=== PATIENT | male | born 1960 | race Caucasian/White ===

== ENCOUNTER 2016-09-09 15:24 | Outpatient (CLI) ==
[2014-04-17 09:56] VITALS: BMI 32.5
== END 2016-09-09 15:25 | disposition home or self-care (01) ==
LOC: DIETCN 15:24
PROVIDERS: ATTEND Internal Medicine
DX: E11.9 Type 2 diabetes mellitus without complications (principal)
CPT/HCPCS: 97802

== ENCOUNTER 2016-11-14 10:21 | Emergency (ER) ==
[2016-11-14 10:22] VITALS: BMI 32.5
[2016-11-14 10:33] VITALS: BP 130/87; TEMP 98.3
--- NOTE | 2016-11-14 10:41 | ED.PDOC ---
General ED Provider: Dr. CRISTAL AGUILLON Chief Complaint: Bite Stated Complaint: tick bite/ tick embedded in skin Time Seen by Physician: 10:23 (tick bite right leg) Mode of Arrival: Walk-In Information Source: Patient Exam Limitations: No limitations Primary Care Provider: LONG NICOLAS Nursing and Triage Documentation Reviewed and Agree: Yes (behind right knee) Skin Complaint Exam - Skin/Soft Tissue Complaint/Exam Onset/Duration: 3 days Symptoms Are: Still present Timing: Constant Current Severity: Mild Character: Denies: Redness, Swelling, Raised, Painful Aggravating: Reports: None Alleviating: Reports: None Associated Signs and Symptoms: Denies: Fever, Chills, Itching, Drainage, Bruising, Tenderness, Red streaks, Joint swelling Related Surgical History: Reports: None Recent Exposure to Others w/Similar Symptoms: No Skin Findings: Present: Other (tick bite) Joint Tenderness Present: No Review of Systems - Review Of Systems Constitutional: Reports: No symptoms Eyes: Reports: No symptoms Ears, Nose, Mouth, Throat: Reports: No symptoms Respiratory: Reports: No symptoms Cardiac: Reports: No symptoms GI: Reports: No symptoms : Reports: No symptoms Musculoskeletal: Reports: No symptoms Skin: Reports: Other (tick bite) Neurological: Reports: No symptoms Endocrine: Reports: No symptoms Hematologic/Lymphatic: Reports: No symptoms All Other Systems: Reviewed and Negative Past Medical History - Past Medical History Previously Healthy: No Endocrine: Reports: DM 2, Dyslipidemia Cardiovascular: Reports: None Respiratory: Reports: None Hematological: Reports: None Gastrointestinal: Reports: GERD Genitourinary: Reports: None Neuro/Psych: Reports: None Musculoskeletal: Reports: None Cancer: Reports: None - Surgical History General Surgical History: Reports: Unknown - Family History Family History: Reports: Unknown - Social History Smoking Status: Never smoker Hx Substance Use: No Alcohol Screening: Occasionally - Immunizations Tetanus Shot up to Date: Yes Physical Exam - Physical Exam Appearance: Well-appearing, No pain distress, Well-nourished Eyes: ZULEYKA, EOMI, Conjunctiva clear ENT: Ears normal, Nose normal, Oropharynx normal Respiratory: Airway patent, Breath sounds clear, Breath sounds equal, Respirations nonlabored Cardiovascular: RRR, Pulses normal, No rub, No murmur GI/: Soft, Nontender, No masses, Bowel sounds normal, No Organomegaly Musculoskeletal: Normal strength, ROM intact, No edema, No calf tenderness Skin: Warm, Dry (tick noted behind right knee see photos) Neurological: Sensation intact, Motor intact, Reflexes intact, Cranial nerves intact, Alert, Oriented Psychiatric: Affect appropriate, Mood appropriate Critical Care Note - Critical Care Note Total Time (mins): 0 Course - Course Orders, Labs, Meds: Orders Category Date Time Status BLOOD CULTURE Stat LAB 11/14/16 10:30 Stop Req CBC W/ AUTO DIFF Stat LAB 11/14/16 10:30 Stop Req COMPREHENSIVE METABOLIC PANEL Stat LAB 11/14/16 10:30 Stop Req LYME, WESTERN BLOT, SERUM Stat LAB 11/14/16 Ordered Vital Signs: Temp Pulse Resp BP Pulse Ox 11/14/16 10:23 98.3 F 80 20 130/87 98 Departure - Departure Time of Disposition: 10:42 (seen with eladia. pt was told he needs to follow lyme titer from PMD. PHOTO SUBMITTED ) Disposition: HOME SELF-CARE Discharge Problem: Tick bite Qualifiers: Encounter type: initial encounter Qualifier Code: (W57.XXXA) Bitten or stung by nonvenomous insect and other nonvenomous arthropods, initial encounter Instructions: Tick Bite (ED), Insect Bite or Sting (ED) Condition: Good Pt referred to PMD for follow-up: No Additional Instructions: Please call your Family Physician as soon as possible to schedule a follow-up appointment. Allergies/Adverse Reactions: Allergies ciprofloxacin [From Cipro] Adverse Reaction (Verified 04/17/14 10:18) ciprofloxacin HCl [From Cipro] Adverse Reaction (Verified 04/17/14 10:18) piroxicam [From Feldene] Adverse Reaction (Verified 04/17/14 10:18) venom-wasp [Wasp Venom] Adverse Reaction (Verified 04/17/14 10:18) Home Medications: Ambulatory Orders Buspirone HCl 15 mg PO DAILY 01/24/13 Citalopram Hydrobromide [Celexa] 20 mg PO DAILY 01/24/13 Esomeprazole Magnesium [Nexium] 40 mg PO DAILY 01/24/13 Glimepiride [Amaryl] 4 mg PO BID 01/24/13 Metformin HCl [Fortamet] 1,000 mg PO DIRECTED 01/24/13 Losartan Potassium 100 tab PO DAILY 04/16/13 Saxagliptin HCl [Onglyza] 5 tab PO DAILY 04/16/13 Atorvastatin Calcium 10 mg PO DAILY 04/17/14
[2016-11-17 19:18] LABS: IGG P18 AB Absent (.); IGG P23 AB Absent (.); IGG P28 AB Absent (.); IGG P30 AB Absent (.); IGG P39 AB Present (.); IGG P41 AB Present (.); IGG P45 AB Absent (.); IGG P58 AB Absent (.); IGG P66 AB Absent (.); IGG P93 AB Absent (.); IGM P39 AB Absent (.); IGM P41 AB Absent (.)
[2016-11-18 08:20] LABS: LYME IGG WB INTERP Negative (.); LYME IGM WB INTERP Negative (.)
== END 2016-11-14 10:49 | disposition home or self-care (01) ==
LOC: ED 10:21
DX: S80.861A Insect bite (nonvenomous), right lower leg, initial encounter (principal); L53.9 Erythematous condition, unspecified; W57.XXXA Bitten or stung by nonvenomous insect and other nonvenomous arthropods, initial encounter; Z79.899 Other long term (current) drug therapy
CPT/HCPCS: 36415; 86617; 99282

== ENCOUNTER 2017-01-13 08:03 | Emergency (ER) ==
[2017-01-13 08:04] VITALS: BMI 32.5
[2017-01-13 08:08] VITALS: BP 148/90; TEMP 97.8
[2017-01-13] MEDS ORDERED: DECADRON 4 MG/ML SDV IM STA (08:13)
--- NOTE | 2017-01-13 08:54 | ED.PDOC ---
General ED Provider: Dr. CRISTAL AGUILLON Chief Complaint: Bite Stated Complaint: BEE STING L INDEX Time Seen by Physician: 08:00 (NO TOXIC PRESENTATION) Mode of Arrival: Walk-In Information Source: Patient Exam Limitations: No limitations Primary Care Provider: LONG NICOLAS Nursing and Triage Documentation Reviewed and Agree: Yes (STUNG BY A BEE L INDEX SEEN WITH NURSING STAFF AT ALL TIMES ) Trauma/Injury Complaint Exam - Trauma Complaint/Exam Location of Pain or Injury: Reports: Other (L INDEX ) Symptoms Are: Still present Timing of Treatment: Immediate Initial Severity: Mild Current Severity: Mild Alleviating: Reports: Rest Review of Systems - Review Of Systems Constitutional: Reports: No symptoms Eyes: Reports: No symptoms Ears, Nose, Mouth, Throat: Reports: No symptoms Respiratory: Reports: No symptoms Cardiac: Reports: No symptoms GI: Reports: No symptoms : Reports: No symptoms Musculoskeletal: Reports: No symptoms Skin: Reports: No symptoms Neurological: Reports: No symptoms Endocrine: Reports: No symptoms Hematologic/Lymphatic: Reports: No symptoms All Other Systems: Reviewed and Negative Past Medical History - Past Medical History Previously Healthy: No Endocrine: Reports: DM 2, Dyslipidemia Cardiovascular: Reports: None Respiratory: Reports: None Hematological: Reports: None Gastrointestinal: Reports: GERD Genitourinary: Reports: None Neuro/Psych: Reports: None Musculoskeletal: Reports: None Cancer: Reports: None - Surgical History General Surgical History: Reports: Unknown - Family History Family History: Reports: Unknown - Social History Smoking Status: Never smoker Hx Substance Use: No Alcohol Screening: Occasionally - Immunizations Tetanus Shot up to Date: Yes Physical Exam - Physical Exam Appearance: Well-appearing, No pain distress, Well-nourished Eyes: ZULEYKA, EOMI, Conjunctiva clear ENT: Ears normal, Nose normal, Oropharynx normal Respiratory: Airway patent, Breath sounds clear, Breath sounds equal, Respirations nonlabored Cardiovascular: RRR, Pulses normal, No rub, No murmur GI/: Soft, Nontender, No masses, Bowel sounds normal, No Organomegaly Musculoskeletal: Normal strength, ROM intact, No edema, No calf tenderness Skin: Warm, Dry, Normal color Neurological: Sensation intact, Motor intact, Reflexes intact, Cranial nerves intact, Alert, Oriented Psychiatric: Affect appropriate, Mood appropriate Critical Care Note - Critical Care Note Total Time (mins): 0 Course - Course Orders, Labs, Meds: Orders Category Date Time Status Dexamethasone 4 mg/ml Inj [Decadron 4 mg/ml Sdv] MEDS 01/13/17 08:13 Discontinued 4 mg IM ONCE STA Medications Discontinued Medications Generic Name Dose Route Start Last Admin Trade Name Jayy PRN Reason Stop Dose Admin Dexamethasone Sodium Phosphate 4 mg 01/13/17 08:13 01/13/17 08:19 Decadron 4 Mg/Ml Sdv IM 01/13/17 08:14 4 mg ONCE STA Administration Vital Signs: Temp Pulse Resp BP Pulse Ox 01/13/17 08:04 97.8 F 90 20 148/90 H 96 Departure - Departure Time of Disposition: 09:45 Disposition: HOME SELF-CARE Discharge Problem: Bee sting Instructions: Insect Bite or Sting (ED) Condition: Good Pt referred to PMD for follow-up: No Additional Instructions: Please call your Family Physician as soon as possible to schedule a follow-up appointment. Allergies/Adverse Reactions: Allergies ciprofloxacin [From Cipro] Adverse Reaction (Verified 04/17/14 10:18) ciprofloxacin HCl [From Cipro] Adverse Reaction (Verified 04/17/14 10:18) piroxicam [From Feldene] Adverse Reaction (Verified 04/17/14 10:18) venom-wasp [Wasp Venom] Adverse Reaction (Verified 04/17/14 10:18) Home Medications: Ambulatory Orders Buspirone HCl 15 mg PO DAILY 01/24/13 Citalopram Hydrobromide [Celexa] 20 mg PO DAILY 01/24/13 Esomeprazole Magnesium [Nexium] 40 mg PO DAILY 01/24/13 Glimepiride [Amaryl] 4 mg PO BID 01/24/13 Metformin HCl [Fortamet] 1,000 mg PO DIRECTED 01/24/13 Losartan Potassium 100 tab PO DAILY 04/16/13 Saxagliptin HCl [Onglyza] 5 tab PO DAILY 04/16/13 Atorvastatin Calcium 10 mg PO DAILY 04/17/14 Disposition Discussed With: Patient
== END 2017-01-13 09:31 | disposition home or self-care (01) ==
LOC: ED 08:03
DX: T63.441A Toxic effect of venom of bees, accidental (unintentional), initial encounter (principal)
CPT/HCPCS: 96372; 99281; 99282

== ENCOUNTER 2017-07-18 10:50 | Outpatient (CLI) ==
--- NOTE | 2017-07-18 11:27 | US ---
EXAM: ULTRASOUND LOWER EXTREMITY VENOUS DOPPLER EXAM HISTORY: Leg pain and swelling. FINDINGS: Right lower extremity venous Doppler exam. Real time kumar-scale, Doppler spectral analysis and color-flow Doppler imaging performed. The veins targeted for evaluation include the common femo ral, greater saphenous, profundus, femoral, popliteal, peroneal, anterior tibial and posterior tibial . The evaluated veins demonstrated normal spontaneous flow and compression without evidence of thro mbosis. IMPRESSION: No venous thrombosis identified within the areas evaluated.
== END 2017-07-18 10:51 | disposition home or self-care (01) ==
LOC: RAD 10:50
PROVIDERS: ATTEND Internal Medicine
DX: M79.604 Pain in right leg (principal); M79.89 Other specified soft tissue disorders; Z98.890 Other specified postprocedural states

== ENCOUNTER 2018-11-27 06:56 | Outpatient (CLI) ==
--- NOTE | 2018-11-27 09:33 | DI ---
EXAM: Lumbar spine three view HISTORY: Back pain COMPARISON: None TECHNIQUE: Three views lumbar spine were for FINDINGS: Sacroiliac joints intact. Sacral arcuate intact. Vertebral bodies normal height. No fra cture. Multilevel marginal osteophyte formation. Intervertebral disc spaces maintained. Multilevel facet arthrosis, greatest in the lower spine. 2 mm anterolisthesis of L4 on L5. Atherosclerotic va scular calcification. IMPRESSION: Chronic discogenic degenerative disease and facet arthrosis.
== END 2018-11-27 06:57 | disposition home or self-care (01) ==
LOC: RAD 06:56
PROVIDERS: ATTEND Internal Medicine
DX: M54.9 Dorsalgia, unspecified (principal)